=== PATIENT | male | born 1970 | race African-American/Black ===

== ENCOUNTER 2016-09-14 07:54 | Emergency (ER) | payer MEDICAID ==
[2016-09-14 08:38] LABS: ALBUMIN 3.5 g/dL (3.4-5.0); ALKALINE PHOSPHATASE 94 U/L (46-116); ALT (SGPT) 24 U/L (10-68); CALC OSMOLALITY 278 mosm/kg (275-300); CALCIUM 9.2 mg/dL (8.5-10.1); CARBON DIOXIDE 28.3 mmol/L (21.0-32.0); CHLORIDE - SERUM 101 mmol/L (98-107); CREATININE - SERUM 1.1 mg/dL (0.6-1.3); GLUCOSE 253 mg/dL (74-106); POTASSIUM - SERUM 4.3 mmol/L (3.5-5.1); PROTEIN - SERUM 8.3 g/dL (6.4-8.2); SODIUM 135 mmol/L (136-145); UREA NITROGEN 12 mg/dL (7-18); eGFR NON AFRICAN AMERICAN 76 mL/min (90-120)
== END 2016-09-14 10:15 | disposition home or self-care (01) ==
LOC: D.ER 07:54
PROVIDERS: Emergency Medicine
DX: I10 Essential (primary) hypertension (principal)

== ENCOUNTER 2016-12-26 02:33 | Emergency (ER) | payer MEDICAID | END 2016-12-26 04:20 | disposition home or self-care (01) | LOC: D.ER 02:33 | DX: I10 Essential (primary) hypertension (principal); F17.200 Nicotine dependence, unspecified, uncomplicated ==

== ENCOUNTER → 2017-06-10 22:18 | Emergency (ER) | payer MEDICAID | END | disposition home or self-care (01) | LOC: D.ER 22:18 | DX: I10 Essential (primary) hypertension (principal) ==

== ENCOUNTER 2017-07-10 01:51 | Emergency (ER) | payer MEDICAID ==
[2017-07-10 02:33] LABS: BASOPHILS 0.2 % (0-2); EOSINOPHILS 1.9 % (0-7); HEMATOCRIT 42.5 % (42.0-54.0); HEMOGLOBIN 14.8 g/dL (13.5-17.5); LYMPHOCYTES 36.5 % (15-50); MCH 31.4 pg (26.0-34.0); MCHC 34.8 g/dL (31.0-37.0); MCV 90.2 fL (80.0-100.0); MEAN PLATELET VOLUME 9.9 fL (7.4-10.4); NEUTROPHILS 54.4 % (40-80); PLATELET COUNT 227 10x3/uL (130-400); RBC 4.71 10x6/uL (4.20-6.10); WBC 4.7 10x3/uL (4.8-10.8)
[2017-07-10 02:48] LABS: ALBUMIN 3.7 g/dL (3.4-5.0); ALKALINE PHOSPHATASE 102 U/L (46-116); ALT (SGPT) 21 U/L (10-68); BILIRUBIN - TOTAL 0.42 mg/dL (0.2-1.3); CALC OSMOLALITY 275 mosm/kg (275-300); CALCIUM 8.4 mg/dL (8.5-10.1); CARBON DIOXIDE 26.9 mmol/L (21.0-32.0); CHLORIDE - SERUM 101 mmol/L (98-107); GLUCOSE 150 mg/dL (74-106); POTASSIUM - SERUM 3.4 mmol/L (3.5-5.1); PROTEIN - SERUM 8.3 g/dL (6.4-8.2); SODIUM 137 mmol/L (136-145); UREA NITROGEN 10 mg/dL (7-18); eGFR NON AFRICAN AMERICAN 85 mL/min (90-120)
== END 2017-07-10 03:14 | disposition home or self-care (01) ==
LOC: D.ER 01:51
PROVIDERS: Emergency Medicine
DX: I10 Essential (primary) hypertension (principal)

== ENCOUNTER 2017-10-01 08:34 | Emergency (ER) | payer MEDICAID | END 2017-10-01 10:44 | disposition home or self-care (01) | LOC: D.ER 08:34 | DX: I10 Essential (primary) hypertension (principal); F17.200 Nicotine dependence, unspecified, uncomplicated ==

== ENCOUNTER 2017-12-04 07:53 | Emergency (ER) | payer MEDICAID | END 2017-12-04 08:23 | disposition home or self-care (01) | LOC: D.ER 07:53 | DX: I10 Essential (primary) hypertension (principal); F17.200 Nicotine dependence, unspecified, uncomplicated ==

== ENCOUNTER 2018-05-17 09:53 | Emergency (ER) | payer MEDICAID ==
[~2018-05-17] VITALS: Ht 182.9 cm; Wt 84.1 kg
[2018-05-17 09:55] VITALS: Ht 182.9 cm; Wt 84.1 kg
[2018-05-17] MEDS ORDERED: NORVASC10 MG PO ×2 (09:56→11:09)
[2018-05-17 11:18] VITALS: BP 140/98
== END 2018-05-17 11:19 | disposition home or self-care (01) ==
LOC: D.ER 09:53
DX: I10 Essential (primary) hypertension (principal)

== ENCOUNTER 2018-10-09 11:28 | Emergency (ER) | payer MEDICAID ==
[~2018-10-09] VITALS: Ht 182.9 cm; Wt 86.4 kg
[~2018-10-09 11:28] MED LIST: NORVASC10 MG PO
[2018-10-09 11:31] VITALS: Ht 182.9 cm; Wt 86.4 kg
[2018-10-09] MEDS ORDERED: NORVASC10 MG PO (11:44)
[2018-10-09 12:03] VITALS: BP 142/60
== END 2018-10-09 12:04 | disposition home or self-care (01) ==
LOC: D.ER 11:28
DX: I10 Essential (primary) hypertension (principal); Z76.0 Encounter for issue of repeat prescription

== ENCOUNTER 2018-10-26 13:00 | Emergency (ER) | payer MEDICAID ==
[~2018-10-26] VITALS: Ht 182.9 cm; Wt 84.1 kg
[2018-10-26 13:07] VITALS: Ht 182.9 cm; Wt 84.1 kg
[2018-10-26] MEDS ORDERED: NORVASC10 MG PO (18:26)
[2018-10-26 18:47] VITALS: BP 153/89
== END 2018-10-26 18:49 | disposition home or self-care (01) ==
LOC: D.ER 13:00
DX: I10 Essential (primary) hypertension (principal); Z76.0 Encounter for issue of repeat prescription

== ENCOUNTER 2018-12-15 11:51 | Emergency (ER) | payer SELFPAY ==
[~2018-12-15] VITALS: Ht 182.9 cm; Wt 84.1 kg
[2018-12-15 12:12] VITALS: Ht 182.9 cm; Wt 84.1 kg
[2018-12-15] MEDS ORDERED: NORVASC10 MG PO (12:55)
[2018-12-15 13:06] VITALS: BP 139/95
== END 2018-12-15 13:05 | disposition home or self-care (01) ==
LOC: D.ER 11:51
DX: Z76.0 Encounter for issue of repeat prescription (principal); I10 Essential (primary) hypertension

== ENCOUNTER 2019-01-08 14:02 | Emergency (ER) | payer BC ==
[2019-01-08 14:23] VITALS: BMI 25.1
[2019-01-08] MEDS ORDERED: NORVASC10 MG PO (15:47)
[2019-01-08 16:01] VITALS: BP 158/99
== END 2019-01-08 16:02 | disposition home or self-care (01) ==
LOC: D.ER 14:02
DX: I10 Essential (primary) hypertension (principal)

== ENCOUNTER 2020-10-12 05:29 | Inpatient (IN) | payer OTHER ==
[2020-10-12] VITALS (7 sets, daily range): BP systolic 115–159; BP diastolic 84–105; Ht 182.9 cm; Wt 83.9 kg
[~2020-10-12] VITALS: Ht 182.9 cm; Wt 83.9 kg
[2020-10-12 06:16] LABS: CALC OSMOLALITY 280 mosm/kg (275-300); CALCIUM 8.6 mg/dL (8.5-10.1); CARBON DIOXIDE 28.4 mmol/L (21.0-32.0); CHLORIDE - SERUM 99 mmol/L (98-107); POTASSIUM - SERUM 3.4 mmol/L (3.5-5.1); SODIUM 134 mmol/L (136-145); UREA NITROGEN 11 mg/dL (7-18); eGFR NON AFRICAN AMERICAN 84 mL/min (90-120)
[2020-10-12 06:17] LABS: GLUCOSE 342 mg/dL (74-106)
[2020-10-12 06:24] LABS: BASOPHILS 0.2 % (0-2); EOSINOPHILS 2.2 % (0-7); HEMATOCRIT 43.6 % (42.0-54.0); IMMATURE GRANULOCYTES 0.2 % (0-5); LYMPHOCYTE ABS# 1.58 10x3/uL (1.32-3.57); LYMPHOCYTES 25.4 % (15-50); MCH 31.1 pg (26.0-34.0); MCHC 34.4 g/dL (31.0-37.0); MCV 90.3 fL (80.0-100.0); MEAN PLATELET VOLUME 10.4 fL (7.4-10.4); MONOCYTES 6.4 % (2-11); NEUTROPHIL ABS# 4.09 10x3/uL (1.78-5.38); NEUTROPHILS 65.6 % (40-80); PLATELET COUNT 260 10x3/uL (130-400); RBC 4.83 10x6/uL (4.20-6.10); RDW 12.9 % (11.5-14.5); WBC 6.2 10x3/uL (4.8-10.8)
[2020-10-12 06:32] LABS: ALBUMIN 3.5 g/dL (3.4-5.0); ALKALINE PHOSPHATASE 94 U/L (30-120); ALT (SGPT) 30 U/L (10-68); BILIRUBIN - TOTAL 0.37 mg/dL (0.2-1.3); CKMB 1.7 U/L (0.0-3.6); CREATINE KINASE 164 UL (21-232); PROTEIN - SERUM 7.8 g/dL (6.4-8.2); TROPONIN-I 0.045 ng/mL (0.000-0.060)
[2020-10-12 06:36] LABS: APTT 27.4 SECONDS (22.8-39.4); INR 1.01 (0.85-1.17); PROTIME 12.3 SECONDS (11.6-15.0)
--- NOTE | 2020-10-12 07:55 | NUR ---
FSBS 285, PATIENT EDUCATED ON DIABETES, INSULIN, PURPOSE AND HOW TO PERFORM GLUCOSE CHECKS, RESOURCES FOR DIABETES, AND CONSEQUENCES OF NOT CONTROLLING DIABETES. PATIENT VERBALIZED UNDERSTANDING. ASSISTED TO BATHROOM AT THIS TIME.
--- NOTE | 2020-10-12 08:05 | NUR ---
PATIENT EXTREMELY PLEASANT THIS AM, REQUESTS THAT HE IS ABLE TO EAT BREAKFAST AND SLEEP PRIOR TO AM MEDS ADMINISTERED. ASSISTED BACK TO BED FROM BATHROOM, NAD. WILL MONITOR.
--- NOTE | 2020-10-12 08:20 | NUR ---
PATIENT GIVEN SNACKS AT BEDSIDE WHILE AWAITING BREAKFAST TRAY. PHARMACY CALLED TO REQUEST GLUCOTROL 5MG.
--- NOTE | 2020-10-12 08:20 | NUR ---
ADA BREAKFAST TRAY ORDERED FOR PATIENT.
--- NOTE | 2020-10-12 08:58 | NUR ---
REPORT CALLED TO [facility] ON MED SURG.
--- NOTE | 2020-10-12 09:45 | NUR ---
PT ARRIVES TO UNIT PER W/C, SL IN PLACE, WILL CK VITALS AND MONITOR BP, CK SUGAR AT 1130,
[2020-10-12] MEDS ORDERED: NICODERM CQ1 EAC3 TRANSDERM (12:31)
[2020-10-12] MEDS ORDERED: NORVASC10 MG PO (12:31)
[2020-10-12] MEDS ORDERED: HYDRALAZINE HCL10 MG PO (12:32)
[2020-10-12] MEDS ORDERED: GLIPIZIDE5 MG PO (12:33)
[2020-10-12] MEDS ORDERED: GLUCOPHAGE1000 MG PO (12:33)
--- NOTE | 2020-10-12 13:57 | MORECARE ---
CASE MANAGEMENT DISCHARGE SUMMARY PATIENT: ALBINA GARDINER JUNIOR UNIT: [id number] ADM DATE: 10/12/20 AGE: 50 : 70 SEX: M ROOM/BED: D.2227 AUTHOR: BALJIT MILLS PHYSICIAN: REFERRING PHYSICIAN: ANABELLE IRENE MD DATE OF SERVICE: 10/12/20 Discharge Plan Patient Name: ALBINA GARDINER [facility] [facility] 1970 Planned Disposition: Home Anticipated Discharge Date: 10/12/20 Discharge Date: Expected LOS: 1 Initial Reviewer: [email or web address] Initial Review Date: 10/12/2020 Generated: 10/12/20 2:57 pm Patient Name: ALBINA GARDINER Page [id number] at 1357 All edits/amendments must be made on the electronic document DICTATION DATE: 10/12/20 1357 GOODWILL AMBASSADOR: ENMANUEL 10/12/20 1357 RPT#: [id number] DC DATE: STATUS: ADM IN [facility] [address] [place] [address] END OF REPORT
--- NOTE | 2020-10-12 14:04 | MORECARE ---
CASE MANAGEMENT DISCHARGE SUMMARY PATIENT: ALBINA GARDINER JUNIOR UNIT: [id number] ADM DATE: 10/12/20 AGE: 50 : 70 SEX: M ROOM/BED: D.2227 AUTHOR: BALJIT MILLS PHYSICIAN: REFERRING PHYSICIAN: ANABELLE IRENE MD DATE OF SERVICE: 10/12/20 Discharge Plan Patient Name: ALBINA GARDINER [facility] [facility] 1970 Planned Disposition: Home Anticipated Discharge Date: 10/12/20 Discharge Date: Expected LOS: 1 Initial Reviewer: [email or web address] Initial Review Date: 10/12/2020 Generated: 10/12/20 3:04 pm DCPIA - Discharge Planning Initial Assessment Updated by [email or web address]: David Liu on 10/12/20 1:58 pm * Is the patient Alert and Oriented? Yes * PCP NONE * Pharmacy [facility] on [facility] * Preadmission Environment Home Alone * ADLs Independent * Equipment None * Other Equipment n/a * List name and contact numbers for known caregivers / representatives who currently or will assist patient after discharge: SARINA NG ([facility]) [phone] * Verbal permission to speak to the caregivers and representatives has been obtained from the patient. Yes * Community resources currently utilized None * Please name any agencies selected above. n/a * Additional services required to return to the preadmission environment? No * Can the patient safely return to the preadmission environment? Yes * Has this patient been hospitalized within the prior 30 days at any hospital? No Last DP export: 10/12/20 12:57 pm Patient Name: ALBINA GARDINER Page [id number] at 1404 All edits/amendments must be made on the electronic document DICTATION DATE: 10/12/20 1404 PROFESSOR SCULPTURE: ENMANUEL 10/12/20 1404 RPT#: [id number] DC DATE: STATUS: ADM IN [facility] [address] [place] [address] END OF REPORT
--- NOTE | 2020-10-12 14:25 | MORECARE ---
CASE MANAGEMENT DISCHARGE SUMMARY PATIENT: ALBINA GARDINER JUNIOR UNIT: [id number] ADM DATE: 10/12/20 AGE: 50 : 70 SEX: M ROOM/BED: D.2227 AUTHOR: BALJIT MILLS PHYSICIAN: REFERRING PHYSICIAN: ANABELLE IRENE MD DATE OF SERVICE: 10/12/20 Discharge Plan Patient Name: ALBINA GARDINER Facility: [facility]:[place] : 1970 Planned Disposition: Home Anticipated Discharge Date: 10/12/20 Discharge Date: Expected LOS: 1 Initial Reviewer: [email or web address] Initial Review Date: 10/12/2020 Generated: 10/12/20 3:24 pm Comments DCP- Discharge Planning Updated by [email or web address]: David Liu on 10/12/20 1:[address] CM met with patient to complete DC plan and to evaluate needs. At discharge, the patient plans to return home and feels this is a safe discharge. CM discussed availability of home health, rehab services, and medical equipment. Patient declined HHS, SNF, IPR, and DME. Patient voiced no other needs at this time and is satisfied with DC plan. CM will continue to follow and will assist as needed with dc plans/needs. DCPIA - Discharge Planning Initial Assessment Updated by [email or web address]: David Liu on 10/12/20 1:58 pm * Is the patient Alert and Oriented? Yes * PCP NONE * Pharmacy [facility] on [facility] [address] * Preadmission Environment Home Alone * ADLs Independent * Equipment None * Other Equipment n/a * List name and contact numbers for known caregivers / representatives who currently or will assist patient after discharge: SARINA NG ([facility]) [phone] * Verbal permission to speak to the caregivers and representatives has been obtained from the patient. Yes * Community resources currently utilized None * Please name any agencies selected above. n/a * Additional services required to return to the preadmission environment? No * Can the patient safely return to the preadmission environment? Yes * Has this patient been hospitalized within the prior 30 days at any hospital? No Last DP export: 10/12/20 1:04 pm Patient Name: ALBINA GARDINER Page 12394 at 1425 All edits/amendments must be made on the electronic document DICTATION DATE: 10/12/201423 S[employer]A'S HELPER: ENMANUEL 10/12/201423 RPT#: [id number] DC DATE: STATUS: ADM IN [facility] [address] [place] [address] END OF REPORT
--- NOTE | 2020-10-12 18:08 | NUR ---
IV REMOVED, TIP INTACT, REVIEWED DC ORDERS WITH PT, VOICED NO CONCERNS, PROVIDED WITH RX FOR GLUCOMETER AND SUPPLIES, WALKED FROM UNIT
--- NOTE | 2020-10-14 07:54 | MORECARE ---
CASE MANAGEMENT DISCHARGE SUMMARY PATIENT: ALBINA GARDINER JUNIOR UNIT: [id number] ADM DATE: 10/12/20 AGE: 50 : 70 SEX: M ROOM/BED: D.2227 AUTHOR: LINA,DOC PHYSICIAN: REFERRING PHYSICIAN: ANABELLE IRENE MD DATE OF SERVICE: 10/14/20 Discharge Plan Patient Name: ALBINA GARDINER Facility: [facility]:[place] : 1970 Planned Disposition: Home Anticipated Discharge Date: 10/12/20 Discharge Date: 10/12/2020 Expected LOS: 1 Initial Reviewer: CLAUDETTE Initial Review Date: 10/12/2020 Generated: 10/14/20 8:53 am DCP- Discharge Planning Updated by [email or web address]: David Liu on 10/12/20 1:[address] CM met with patient to complete DC plan and to evaluate needs. At discharge, the patient plans to return home and feels this is a safe discharge. CM discussed availability of home health, rehab services, and medical equipment. Patient declined HHS, SNF, IPR, and DME. Patient voiced no other needs at this time and is satisfied with DC plan. CM will continue to follow and will assist as needed with dc plans/needs. DCPIA - Discharge Planning Initial Assessment Updated by [id number]: David Liu on 10/12/20 1:58 pm * Is the patient Alert and Oriented? Yes * PCP NONE * Pharmacy [facility] [address] [facility] * Preadmission Environment Home Alone * ADLs Independent * Equipment None * Other Equipment n/a * List name and contact numbers for known caregivers / representatives who currently or will assist patient after discharge: SARINA NG ([facility]) [phone] * Verbal permission to speak to the caregivers and representatives has been obtained from the patient. Yes * Community resources currently utilized None * Please name any agencies selected above. n/a * Additional services required to return to the preadmission environment? No * Can the patient safely return to the preadmission environment? Yes * Has this patient been hospitalized within the prior 30 days at any hospital? No Last DP export: 10/12/20 1:25 pm Patient Name: ALBINA GARDINER Page 51205 at 0754 All edits/amendments must be made on the electronic document DICTATION DATE: 10/14/20752 DAY CARE AIDE: ENMANUEL 10/14/20 075 RPT#: [id number] DC DATE:10/12/20 STATUS: DIS IN [facility] [address] [facility] [place] [address] END OF REPORT
== END 2020-10-12 18:15 | disposition home or self-care (01) | DRG 305 ==
LOC: D.ER 05:29 → D.EDHOLD 07:23 → D.MS 07:23
PROVIDERS: Family Medicine; ADMIT Emergency Medicine; ATTEND Emergency Medicine
DX: I16.9 Hypertensive crisis, unspecified (principal); E11.65 Type 2 diabetes mellitus with hyperglycemia; F17.200 Nicotine dependence, unspecified, uncomplicated

== ENCOUNTER 2021-02-03 17:13 | Emergency (ER) | payer OTHER ==
[~2021-02-03] VITALS: Ht 182.9 cm; Wt 84.1 kg
[~2021-02-03 17:13] MED LIST changes: +GLIPIZIDE5 MG PO; +GLUCOPHAGE1000 MG PO; +HYDRALAZINE HCL10 MG PO; +NICODERM CQ1 EAC3 TRANSDERM
[2021-02-03 17:40] VITALS: Ht 182.9 cm; Wt 84.1 kg
[2021-02-03] MEDS ORDERED: NORVASC10 MG PO (19:59)
[2021-02-03 21:08] LABS: BASOPHILS 0.6 % (0-2); EOSINOPHILS 2.2 % (0-7); HEMATOCRIT 46.8 % (42.0-54.0); HEMOGLOBIN 15.4 g/dL (13.5-17.5); LYMPHOCYTES 37.4 % (15-50); MCH 31.1 pg (26.0-34.0); MCV 94.2 fL (80.0-100.0); MONOCYTES 6.9 % (2-11); NEUTROPHILS 52.9 % (40-80); PLATELET COUNT 219 10x3/uL (130-400); RBC 4.97 10x6/uL (4.20-6.10); RDW 13.8 % (11.5-14.5); WBC 6.5 10x3/uL (4.8-10.8)
[2021-02-03 21:16] LABS: CALC OSMOLALITY 280 mosm/kg (275-300); CALCIUM 8.4 mg/dL (8.5-10.1); CARBON DIOXIDE 26.8 mmol/L (21.0-32.0); CHLORIDE - SERUM 102 mmol/L (98-107); POTASSIUM - SERUM 3.9 mmol/L (3.5-5.1); SODIUM 136 mmol/L (136-145); UREA NITROGEN 16 mg/dL (7-18); eGFR NON AFRICAN AMERICAN 84 mL/min (90-120)
[2021-02-03 21:18] LABS: GLUCOSE 236 mg/dL (74-106)
[2021-02-03 21:24] LABS: ALBUMIN 3.6 g/dL (3.4-5.0); ALKALINE PHOSPHATASE 75 U/L (30-120); ALT (SGPT) 22 U/L (10-68); BILIRUBIN - TOTAL 0.32 mg/dL (0.2-1.3); MAGNESIUM - SERUM 1.9 mg/dL (1.8-2.4); PROTEIN - SERUM 7.8 g/dL (6.4-8.2); TROPONIN-I 0.027 ng/mL (0.000-0.060)
[2021-02-03 23:20] LABS: BILIRUBIN NEGATIVE (NEGATIVE); KETONE NEGATIVE mg/dL (< 1+); NITRITE NEGATIVE (NEGATIVE); PH 6.5 (5.0-8.0); SQUAMOUS EPITHELIAL 1 HPF (0-4); UROBILINOGEN NORMAL mg/dL (< 2); WHITE CELLS - URINE 8 HPF (0-1)
[2021-02-03] MEDS ORDERED: GLUCOPHAGE1000 MG PO (23:55)
[2021-02-03] MEDS ORDERED: LISINOPRIL10 MG PO (23:55)
[2021-02-04 00:20] VITALS: BP 141/89
== END 2021-02-04 00:21 | disposition home or self-care (01) ==
LOC: D.ER 17:13
PROVIDERS: Family Medicine
DX: I10 Essential (primary) hypertension (principal); E11.65 Type 2 diabetes mellitus with hyperglycemia; R42 Dizziness and giddiness; Z79.84 Long term (current) use of oral hypoglycemic drugs